=== PATIENT | male | born 1955 | race Caucasian/White ===

== ENCOUNTER 2020-05-10 09:42 | Emergency (ER) | payer OTHER, SELFPAY ==
[2020-05-10] VITALS (9 sets, daily range): BP systolic 140–209; BP diastolic 77–111; PULSE 14–90; RESP 14; TEMP 37; O2SAT 94–97; BMI 31.4
--- NOTE | 2020-05-10 09:51 | ED_ITS ---
HPI - General Adult General Chief complaint: Abdominal Pain Stated complaint: Thinks he has an Appendicitis Time Seen by Provider: 05/10/20 09:45 Source: patient Mode of arrival: Ambulatory Limitations: no limitations History of Present Illness HPI narrative: Patient is a 65-year-old male here for evaluation of stabbing right lower quadrant abdominal pain. He states that his symptoms started yesterday. Been consistent and worsening since then. He was constipated a couple days ago but that his seem to have resolved. No urinary symptoms. No prior abdominal surgeries. He does have a history of lung cancer and is currently on immunotherapy. Has not tried anything for his symptoms prior to her Related Data Allergies Allergy/AdvReac Type Severity Reaction Status Date / Time No Known Drug Allergies Allergy Verified 05/10/20 09:51 Review of Systems Constitutional Constitutional: Denies chills, Denies fever(s) and Denies headache(s) ENT Ears, Nose, Mouth, and Throat: Denies headache(s) Cardiovascular Cardiovascular: Denies chest pain and Denies dyspnea Respiratory Respiratory: Denies dyspnea Gastrointestinal Gastrointestinal: Reports abdominal pain, Denies change in bowel habits, Denies nausea and Denies vomiting Genitourinary Genitourinary: Denies dysuria Genitourinary: Denies dysuria Musculoskeletal Musculoskeletal: Denies arthralgias and Denies myalgias Integumentary/Breasts Skin/Breast: Denies rash Neurologic Neurologic: Denies behavioral changes and Denies headache(s) Psychiatric Psychiatric: Denies behavioral changes Hematologic/Lymphatic On Anticoagulants: No Allergic/Immunologic Allergic/Immunologic: Denies urticaria Patient History Medical History Hypertension Lung cancer Social History lives independently: Yes Smoking Status: Unknown if ever smoked Exam Initial Vital Signs Initial Vital Signs: Vital Signs Temperature 98.6 F 05/10/20 09:43 Pulse Rate 14 L 05/10/20 09:43 Respiratory Rate 14 05/10/20 09:43 Blood Pressure 209/111 H 05/10/20 09:43 Pulse Oximetry 95 05/10/20 09:43 Const General: cooperative and comfortable Limitations: mental status not altered HENMT Head: normal to inspection and normocephalic Resp Effort & Inspection: normal respiratory effort Cardio Rate: regular rate GI Inspection: non-distended Palpation: soft, No firm, No guarding and tender (Right-sided abdomen, right lower quadrant) Skin Lesions: no lesions Rashes: no rashes Neuro General: patient alert and patient awake Cognition: normal cognition Speech: speech normal Extrem General: capillary refill normal and No edema Psych Appearance: grossly normal and well kempt Scores GCS Nadia coma scale eye opening: Spontaneous Nadia coma scale verbal response: Orientated [place] coma scale motor response: Obey commands [place] coma scale total score: 15 Course Orders Ordered: ED Orders 05/10/20 10:37 Complete Blood Count AUTO DIFF Stat Comprehensive Metabolic Panel Stat Lipase Stat 05/10/20 11:53 CT abdomen pelvis w con Stat Discontinued Medications Sodium Chloride (Normal Saline 0.9%) 1,000 mls @ 1,000 mls/hr IV BOLUS ONE Stop: 05/10/20 10:44 Last Infusion: 05/10/20 11:32 Dose: 0 mls/hr Documented by: Admin: 05/10/20 10:10 Dose: 1,000 mls/hr Documented by: RICH Vital Signs Vital signs: Vital Signs - 8 hr 05/10/20 09:43 05/10/20 10:11 05/10/20 10:30 Temperature 98.6 F Pulse Rate 14 L 81 83 Respiratory Rate 14 Blood Pressure 209/111 H 160/94 H 151/80 H Pulse Oximetry 95 96 94 05/10/20 10:49 05/10/20 11:00 05/10/20 11:30 Temperature Pulse Rate 84 80 77 Respiratory Rate Blood Pressure 170/90 H 162/77 H 142/84 H Pulse Oximetry 97 96 95 05/10/20 12:04 Temperature Pulse Rate 90 Respiratory Rate Blood Pressure 193/92 H Pulse Oximetry 95 Medical Decision Making Lab Data Lab results reviewed: Yes I reviewed the patient's lab results. Result diagrams: 05/10/20 10:37 05/10/20 10:37 Labs: Lab Results 05/10/20 05/10/20 Range/Units 10:37 10:37 WBC 5.6 (4.5-11.0) X10^3/uL RBC 4.68 (4.5-5.9) X10^6/uL Hgb 14.0 (13.5-17.5) g/dL Hct 40.7 L (41-53) % MCV 87.0 (80-100) fL MCH 29.9 (26-34) PG MCHC 34.4 (30-36) % RDW 13.8 (11.6-14.8) % Plt Count 214 (150-400) X10^3/uL Neut % (Auto) 58.8 (50-75) % Lymph % (Auto) 29.2 (25-40) % [place] % (Auto) 9.3 (3-14) % Eos % (Auto) 1.7 L (2-4) % Baso % (Auto) 1.0 (0-2) % Neut # (Auto) 3300 (7215-2785) /uL Lymph # (Auto) 1600 (5073-3881) /uL [place] # (Auto) 500 (0-900) /uL Eos # (Auto) 100 (0-450) /uL Baso # (Auto) 100 (0-100) /uL Sodium 134 L (137-145) mmol/L Potassium 3.5 (3.4-5.1) mmol/L Chloride 100 (98-107) mmol/L Carbon Dioxide 29 (22-32) mmol/L BUN 21 H (9-20) mg/dL Creatinine 0.81 (0.66-1.25) mg/dL Estimated GFR > 60.0 (>60) mL/min BUN/Creatinine Ratio 25.9 H (6-22) Glucose 217 H (80-110) mg/dL Calcium 9.1 (8.4-10.2) mg/dL Total Bilirubin 2.0 H (0.2-1.3) mg/dL AST 101 H (17-59) IU/L ALT 89 H (<50) IU/L Alkaline Phosphatase 79 (38-126) U/L Total Protein 7.7 (6.3-8.2) g/dL Albumin 4.6 (3.5-5.0) g/dL Globulin 3.1 (1.7-4.1) g/dL Albumin/Globulin Ratio 1.5 (1.0-2.8) Lipase 148 (23-300) U/L Urine Dip Bedside Urine Glucose 100 mg/dl Bedside Urine Bilirubin - Negative Bedside Urine Ketone - Negative Urine Specific [place] 1.015 Bedside Urine Occult Blood - Negative Bedside Urine pH 6.0 Bedside Urine Protein - Negative Bedside Urine Urobilinogen - Negative Bedside Urine Nitrite - Negative Bedside Urine Leukocytes - Negative Esterase Point of care testing: Urine Dip Bedside Urine Glucose 100 mg/dl Bedside Urine Bilirubin - Negative Bedside Urine Ketone - Negative Urine Specific [place] 1.015 Bedside Urine Occult Blood - Negative Bedside Urine pH 6.0 Bedside Urine Protein - Negative Bedside Urine Urobilinogen - Negative Bedside Urine Nitrite - Negative Bedside Urine Leukocytes - Negative Esterase Imaging Data CT scan - abdomen/pelvis: Radiologist's Impression: [address] [id number] Scan ReportSigned Patient: Chidi Puentes EMR#: [id number]: [id number]:[id number]/Sex: 65 / MDate of Service: 05/10/20Loc: EDAccession Number: [id number] Procedure: CT abdomen pelvis w con Ordering Provider: Pedro Emanuel D.O. PROCEDURE: CT ABDOMEN PELVIS W CON INDICATIONS: Right lower quadrant abdominal pain, eval for appy TECHNIQUE: After the administration of intravenous contrast, 5 mm thick sections acquired from the diaphragm to the symphysis. 5 mm coronal and sagittal reformats were acquired. For radiation dose reduction, the following was used: automated exposure control, adjustment of mA and/or kV according to patient size. COMPARISON: None. FINDINGS: Image quality: Excellent. ABDOMEN: Lung bases: Lung bases are clear. Heart size is normal. Solid organs: Diffusely decreased hepatic attenuation is compatible with fatty infiltration. A peripherally enhancing 2.1 x 1.8 cm lesion in the right hepatic lobe. The liver is enlarged, measuring up to 21.9 cm in craniocaudal extent. Lobular appearance of the gallbladder fundus is most likely due to benign adenomyomatosis. Biliary system is non dilated. Pancreas enhances normally. Spleen is normal in size and enhancement. No adrenal nodules. Kidneys demonstrate normal size and enhancement, without hydronephrosis. Peritoneum and bowel: Multiple diverticula are seen in the colon without signs of acute diverticulitis. The appendix appears normal. No free fluid or air. Nodes and vessels: No retroperitoneal or mesenteric adenopathy by size criteria. Aorta and inferior vena cava are normal in size. Mild aortic atherosclerotic calc ifications are present. Miscellaneous: Small periumbilical fat containing hernia. PELVIS: Genitourinary: Bladder wall thickness is normal. The prostate is enlarged. Miscellaneous: No inguinal hernias or adenopathy. Bones: No suspicious bony lesions. No vertebral body compression fractures. Degenerative changes are seen in the included portions of the spine. IMPRESSION: 1. No acute abnormality is identified in the abdomen or pelvis. Normal appendix. 2. Colonic diverticulosis without signs of acute diverticulitis. 3. Hepatomegaly and diffuse hepatic steatosis. 4. A peripherally enhancing, poorly defined lesion in the right hepatic lobe measures 2.1 x 1.8 cm, possibly representing a benign hemangioma although other benign and malignant lesions are not excluded. Contrast enhanced liver protocol MRI or CT is recommended for further evaluation, which may be performed on a nonemergent basis. 5. Prostatomegaly. Dictated by: Capo Grant M.D. on 05/10/2020 at 12:25 Approved by: Capo Grant M.D. on 05/10/2020 at 12:35 MDM Narrative Medical decision making narrative: CT scan today shows no acute pathology. He does have diverticulosis without diverticulitis. His appendix is normal. He is afebrile. I did discuss the incidental finding of the hemangioma informed him that he needed talk his primary doctor regarding this. No indication for antibiotics. No indication for surgical consultation. I did discuss this with him and his . He is given return precautions. She expressed understanding and agreement. Discharge Plan Departure Patient Disposition: Home Clinical Impression: Abdominal pain, Hepatic lesion Instructions: DI for Abdominal Pain-Adult Activity Restrictions/Additional Instructions: The CT scan today did not show any signs of an infection or any surgical issues. There was an incidental finding of a lesion on your liver that does need to be followed by your primary doctor. I recommend a outpatient appointment to discuss further workup of this. Continue with all of your scheduled medical appointments. Return to the emergency department for any new or worsening symptoms Referrals: Mercy Lopez MD [Primary Care Provider] -
[2020-05-10] MEDS: SODIUM CHLORIDE 0.9% 1,000 ML 1000 ML IV (10:10)
[2020-05-10 10:49] LABS: Add Manual Diff / Slide Review NO; Basophils Absolute Auto 100 /uL (0-100); Eosinophils Absolute Auto 100 /uL (0-450); Eosinophils Percent Auto 1.7 % (2-4); Hematocrit 40.7 % (41-53); Lymphocytes Absolute Auto 1600 /uL (1100-4500); Lymphocytes Percent Auto 29.2 % (25-40); Mean Corpuscular HGB Conc 34.4 % (30-36); Mean Corpuscular Hemoglobin 29.9 PG (26-34); Monocytes Absolute Auto 500 /uL (0-900); Monocytes Percent Auto 9.3 % (3-14); Neutrophils Absolute Auto 3300 /uL (1500-7000); Neutrophils Percent Auto 58.8 % (50-75); Platelet Count 214 X10^3/uL (150-400); Red Blood Cell Count 4.68 X10^6/uL (4.5-5.9); Red Cell Distribution Width 13.8 % (11.6-14.8); White Blood Cell Count 5.6 X10^3/uL (4.5-11.0)
[2020-05-10 10:54] LABS: HEMOLYSIS < 15 (0-50); Potassium 3.5 mmol/L (3.4-5.1)
[2020-05-10 11:43] LABS: BUN Creatinine Ratio 25.9 (6-22); Blood Urea Nitrogen 21 mg/dL (9-20); Carbon Dioxide 29 mmol/L (22-32); Chloride 100 mmol/L (98-107); Estimated Glomerular Filt Rate > 60.0 mL/min (>60); Sodium 134 mmol/L (137-145)
[2020-05-10 11:44] LABS: Alanine Aminotransferase 89 IU/L (<50); Alkaline Phosphatase 79 U/L (38-126); Aspartate Aminotransferase 101 IU/L (17-59); Calcium 9.1 mg/dL (8.4-10.2); Glucose 217 mg/dL (80-110); Total Protein 7.7 g/dL (6.3-8.2)
[2020-05-10 11:45] LABS: Albumin 4.6 g/dL (3.5-5.0); Albumin Globulin Ratio 1.5 (1.0-2.8); Globulin 3.1 g/dL (1.7-4.1); Lipase 148 U/L (23-300)
--- NOTE | 2020-05-10 11:53 | DI.CT.S_ITS ---
PROCEDURE: CT ABDOMEN PELVIS W CON INDICATIONS: Right lower quadrant abdominal pain, eval for appy TECHNIQUE: After the administration of intravenous contrast, 5 mm thick sections acquired from the diaphragm to the symphysis. 5 mm coronal and sagittal reformats were acquired. For radiation dose reduction, the following was used: automated exposure control, adjustment of mA and/or kV according to patient size. COMPARISON: None. FINDINGS: Image quality: Excellent. ABDOMEN: Lung bases: Lung bases are clear. Heart size is normal. Solid organs: Diffusely decreased hepatic attenuation is compatible with fatty infiltration. A peripherally enhancing 2.1 x 1.8 cm lesion in the right hepatic lobe. The liver is enlarged, measuring up to 21.9 cm in craniocaudal extent. Lobular appearance of the gallbladder fundus is most likely due to benign adenomyomatosis. Biliary system is non dilated. Pancreas enhances normally. Spleen is normal in size and enhancement. No adrenal nodules. Kidneys demonstrate normal size and enhancement, without hydronephrosis. Peritoneum and bowel: Multiple diverticula are seen in the colon without signs of acute diverticulitis. The appendix appears normal. No free fluid or air. Nodes and vessels: No retroperitoneal or mesenteric adenopathy by size criteria. Aorta and inferior vena cava are normal in size. Mild aortic atherosclerotic calcifications are present. Miscellaneous: Small periumbilical fat containing hernia. PELVIS: Genitourinary: Bladder wall thickness is normal. The prostate is enlarged. Miscellaneous: No inguinal hernias or adenopathy. Bones: No suspicious bony lesions. No vertebral body compression fractures. Degenerative changes are seen in the included portions of the spine. IMPRESSION: 1. No acute abnormality is identified in the abdomen or pelvis. Normal appendix. 2. Colonic diverticulosis without signs of acute diverticulitis. 3. Hepatomegaly and diffuse hepatic steatosis. 4. A peripherally enhancing, poorly defined lesion in the right hepatic lobe measures 2.1 x 1.8 cm, possibly representing a benign hemangioma although other benign and malignant lesions are not excluded. Contrast enhanced liver protocol MRI or CT is recommended for further evaluation, which may be performed on a nonemergent basis. 5. Prostatomegaly. Dictated by: Capo Grant M.D. on 05/10/2020 at 12:25 Approved by: Capo Grant M.D. on 05/10/2020 at 12:35
== END 2020-05-10 13:09 | disposition home or self-care (01) ==
PROVIDERS: Emergency Provider Emergency Medicine; PCP Internal Medicine; Referring Provider Emergency Medicine
DX: R10.31 Right lower quadrant pain (principal); K76.9 Liver disease, unspecified; I10 Essential (primary) hypertension
CPT/HCPCS: 36415; 74177; 80053; 81003; 83690; 85025; 96360; 99283; 99284; Q9967